=== PATIENT | male | born 1985 | race Caucasian/White ===

== ENCOUNTER 2021-05-30 00:07 | Emergency (ER) | payer SELFPAY ==
[~2021-05-30] VITALS: Ht 172.7 cm; Wt 63.5 kg
[2021-05-30 00:10] VITALS: BP 148/95
== END 2021-05-30 03:57 | disposition left against medical advice (07) ==
LOC: EDBD 00:07 → ER 00:07
DX: H92.01 Otalgia, right ear (principal); Z53.21 Procedure and treatment not carried out due to patient leaving prior to being seen by health care provider